=== PATIENT | female | born 1955 | race American Indian/Alaskan Native ===

== ENCOUNTER 2017-04-07 07:18 | Outpatient (CLI) | payer OTHER ==
--- NOTE | 2017-04-07 13:05 | Mammography Report ---
BILATERAL DIGITAL SCREENING MAMMOGRAM with CAD: 04/07/17 07:18:00 CLINICAL: Routine screening. COMPARISON:02/25/14 FINDINGS: The breasts are almost entirely fatty. No mass, architectural distortion or suspicious calcifications. IMPRESSION: No mammographic evidence of malignancy. BI-RADS CATEGORY: 1 - - Negative RECOMMENDATION: Routine mammographic screening in one year. COMMENT: Patient follow-up letters are generated by our [employer] application.
== END 2017-04-07 07:19 | disposition home or self-care (01) ==
LOC: MAMMO 07:18
PROVIDERS: ATTEND Family Medicine
DX: Z12.31 Encounter for screening mammogram for malignant neoplasm of breast (principal); I11.0 Hypertensive heart disease with heart failure; I50.9 Heart failure, unspecified; E11.9 Type 2 diabetes mellitus without complications; E78.00 Pure hypercholesterolemia, unspecified
CPT/HCPCS: 77067; G0202

== ENCOUNTER 2017-06-28 06:11 | Day surgery (SDC) | payer OTHER ==
[2017-06-28] MEDS ORDERED: DIPRIVAN 10 MG/ML IV ONE ×2 (07:38)
[2017-06-28] MEDS ORDERED: WATER FOR IRRIG STERILE IR ONE (07:41)
--- NOTE | 2017-06-28 07:45 | Anesthesia Consultation ---
Anesthesia Consult and Med Hx Date of service: 06/28/17 - Airway Anesthetic Teeth Evaluation: Poor (multiple missing) ROM Head & Neck: Adequate Mental/Hyoid Distance: Adequate Mallampati Class: Class I Intubation Access Assessment: Good - Pulmonary Exam CTA: Yes - Cardiac Exam Cardiac Exam: RRR - Pre-Operative Health Status ASA Pre-Surgery Classification: ASA3 Proposed Anesthetic Plan: MAC - Pulmonary Hx Asthma: Yes (last inhaler use >1yr) - Cardiovascular System Hx Hypertension: Yes Hx Heart Attack/AMI: Yes (, no intervention ) Hx Angina: No - Central Nervous System CVA: Yes (2011, no deficits) - Endocrine Hx Non-Insulin Dependent Diabetes: Yes
--- NOTE | 2017-06-28 07:48 | Anesthesia Day of Surgery ---
Anesthesia Day of Surgery - Day of Surgery Patient Examined: Yes Patient H&P Reviewed: Yes Patient is NPO: Yes
[2017-06-28] MEDS ORDERED: NACL 0.9% 1000 ML 1,000 ML IV SCH (08:00)
[2017-06-28] MEDS ORDERED: XYLOCAINE MPF 2% ONE (08:00)
--- NOTE | 2017-06-28 08:17 | Short Stay Summary ---
Short Stay Documentation - Allergies and Medications Current Medications: Allergies No Known Allergies Allergy (Verified 06/27/17 10:03) Home Medications Medication Instructions Recorded Confirmed Last Taken Type Aspirin [Aspirin TAB] 325 mg PO QDAY 02/08/13 06/28/17 02/08/13 History Atorvastatin (Nf) [Lipitor] 20 mg PO DAILY 02/08/13 06/28/17 06/27/17 History Diltiazem HCl [Tiazac] 240 mg PO QDAY 02/08/13 06/28/17 02/08/13 History Glimepiride [Amaryl] 4 mg PO DAILY 02/08/13 06/28/17 06/27/17 History Trazodone HCl [traZODone] 50 mg PO QDAY 02/08/13 06/28/17 06/27/17 History Valsartan [Diovan] 25 - 320 mg PO DAILY 02/08/13 06/28/17 06/27/17 History metFORMIN [Glucophage] 1,000 mg PO BID 02/08/13 06/28/17 06/27/17 History valACYclovir [Valtrex] 500 mg PO DAILY 02/08/13 06/28/17 06/27/17 History hydrALAZINE 25 mg PO DAILY 06/28/17 06/28/17 06/27/17 History Active Medications Sodium Chloride (Nacl 0.9% 1000 Ml) 1,000 mls @ 50 mls/hr IV DIRECT ANNA Last Admin: 06/28/17 07:42 Dose: 50 mls/hr - Brief post op/procedure progress note Date of procedure: 06/28/17 Pre-op diagnosis: Colon cancer screening Post-op diagnosis: same (1. Poor prep 2. Internal hemorrhoids) Procedure: Colonoscopy Anesthesia: MAC Findings: as above Surgeon: KIKA STRONG Estimated blood loss: none Pathology: none Condition: stable - Disposition Condition at discharge: Stable Disposition: -01 TO HOME OR SELFCARE Short Stay Discharge Plan Activity: no restrictions Weight Bearing Status: Full Weight Bearing Diet: regular, low salt Follow up with: KELLY AYALA MD [Primary Care Provider] - 7 Days
[2017-06-28 08:39] VITALS: BP 142/68
--- NOTE | 2017-06-28 11:14 | Post Anesthesia Evaluation ---
- Post Anesthesia Evaluation Patient Participated: Yes Airway Patent: Yes Stable Respiratory Function: Yes Nausea/Vomiting: No Temp > 96.8F: Yes Pain Manageable: Yes Adequeate Hydration: Yes Anesthesia Complications: No
== END 2017-06-28 06:12 | disposition home or self-care (01) ==
LOC: GIO 06:11
PROVIDERS: ATTEND Internal Medicine Gastroenterology
DX: K64.0 First degree hemorrhoids (principal); E78.00 Pure hypercholesterolemia, unspecified; E11.9 Type 2 diabetes mellitus without complications; I10 Essential (primary) hypertension; I25.2 Old myocardial infarction; J45.909 Unspecified asthma, uncomplicated; Z86.73 Personal history of transient ischemic attack (TIA), and cerebral infarction without residual deficits
CPT/HCPCS: 45378; 82962; J2704; J7030

== ENCOUNTER 2017-06-30 06:12 | Outpatient (CLI) | payer OTHER ==
[2017-06-30 07:00] LABS: Blood Urea Nitrogen 13 mg/dL (7-17)
--- NOTE | 2017-06-30 10:02 | Cat Scan Report ---
CT abdomen and pelvis with contrast: Diarrhea and bloating. Following IV and oral contrast administration transverse images are obtained from lower chest to the ischium with coronal and sagittal 2-D reformatted images. Imaging of the lung bases demonstrates linear scarring in the visualized upper and lower lobes. A small circumscribed nodule is noted in the left hepatic lobe consistent with cyst. A tiny exophytic hypoechoic nodules noted extending from the upper pole of the left kidney also consistent with cysts. The abdominal and retroperitoneal organs are not otherwise remarkable. The partially opacified bowel appears normal with no inflammatory changes. Suspect mild diverticular changes of the descending colon. There is an anterior midline abdominal wall hernia with a separation of 3.6 cm. Mesenteric tissue with vascular markings extend into the subcutaneous fatty tissue measuring approximately 5.8 x 8.2 x 9.6 cm in size. The patient's reproductive organs are present in the pelvis is unremarkable. Degenerative spondylosis is noted in the mid to lower lumbar spine. Impressions: Abdominal wall hernia. Mild diverticular changes of the descending colon.
== END 2017-06-30 06:13 | disposition home or self-care (01) ==
LOC: CT 06:12
PROVIDERS: ATTEND Internal Medicine Gastroenterology
DX: K52.9 Noninfective gastroenteritis and colitis, unspecified (principal); K43.9 Ventral hernia without obstruction or gangrene; K59.04 Chronic idiopathic constipation; J98.4 Other disorders of lung; R14.0 Abdominal distension (gaseous); M47.896 Other spondylosis, lumbar region
CPT/HCPCS: 36415; 74177; 82565; 84520; Q9967

== ENCOUNTER 2020-02-05 07:26 | Outpatient (CLI) | payer OTHER ==
--- NOTE | 2020-02-05 08:38 | Mammography Report ---
BILATERAL DIGITAL SCREENING MAMMOGRAM WITH CAD HISTORY: SCREENING MAMMOGRAM TECHNIQUE: Routine digital mammographic imaging performed. This examination was interpreted with neto laughlin benefit of Computer-aided Detection analysis. COMPARISON: 04/07/2017, 02/25/2014. FINDINGS: Breast Density: scattered fibroglandular appearance of the breast tissue. Digital CC and MLO views demonstrate no mammographic evidence of malignancy. IMPRESSION: No mammographic evidence of malignancy. If the clinical examination remains stable, recommend bilate ral mammogram in approximately one year. BIRADS 1: Negative. FURTHER INFORMATION: According to the [employer], yearly mammograms are recommend ed starting at age 40 and continuing as long as a woman is in good health. Clinical Breast Exams shou ld be part of a periodic health exam-about every 3 years for women in their 20s and 30s and every yea r for women 40 and over. Breast self exam is an option for women starting in their 20s. Any breast ch alok noted on a breast self exam should be reported promptly to the patient's healthcare provider. Br east MRI is recommended for women with an approximately 20-25% or greater lifetime risk of breast can cer, including women with a strong family history of breast or ovarian cancer and women who have been treated for Hodgkin's disease. A negative Mammography report should not discourage follow up or biopsy of a clinically significant f inding and/or abnormality. Dense breast tissue may obscure small neoplasms. The patient will be entered into a reminder system with a target due date for the next screening mamm ogram. Signer Name: Vasu Dong MD Signed: 02/05/2020 8:33 AM Workstation Name: [id number]
== END 2020-02-05 07:27 | disposition home or self-care (01) ==
LOC: MAMMO 07:26
PROVIDERS: ATTEND Family Medicine
DX: Z12.31 Encounter for screening mammogram for malignant neoplasm of breast (principal)
CPT/HCPCS: 77067

== ENCOUNTER 2021-03-24 09:19 | Outpatient (CLI) | payer OTHER ==
--- NOTE | 2021-03-25 11:20 | Mammography Report ---
DIGITAL SCREENING MAMMOGRAM WITH CAD, 03/24/2021 CLINICAL INFORMATION / INDICATION: Routine screening mammography. SCREENING MAMMOGRAM TECHNIQUE: Digital bilateral 2D mammography was obtained in the craniocaudal and mediolateral obliqu e projections. This examination was interpreted with the benefit of Computer-Aided Detection analysis . COMPARISON: 02/25/2014 through 02/05/2020. FINDINGS: Breast Density: There are scattered areas of fibroglandular density. No dominant mass, suspicious calcifications, or architectural distortion in either breast. IMPRESSION: No mammographic evidence of malignancy. Follow up recommendation: Routine yearly BI-RADS Category 1: Negative. A "normal" or negative report should not discourage follow up or biopsy of a clinically significant f inding. A written summary of these findings will be mailed to the patient. The patient will be entered into a mammography reporting system which will generate a reminder letter for the patient's next appointmen t at the appropriate interval. The [employer] recommends yearly mammograms starting at age 40 and continuing as l ankit as a woman is in good health. Breast MRI is recommended for women with an approximate 20-25% or greater lifetime risk of breast cancer, including women with a strong family history of breast or ova rola cancer or who have been treated for Hodgkin's disease. Signer Name: Roland Lombardo MD Signed: 03/25/2021 11:15 AM Workstation Name: [id number]
== END 2021-03-24 09:20 | disposition home or self-care (01) ==
LOC: MAMMO 09:19
PROVIDERS: ATTEND Family Medicine
DX: Z12.31 Encounter for screening mammogram for malignant neoplasm of breast (principal)
CPT/HCPCS: 77067